=== PATIENT | female | born 1995 | race Caucasian/White ===

== ENCOUNTER → 2024-01-09 09:05 | Outpatient (REF) | payer OTHER, SELFPAY | LOC: MRI 09:05 | PROVIDERS: ATTENDING PHYSICIAN Nurse Practitioner Family; FAMILY PHYSICIAN Physician Assistant Medical | DX: M54.50 Low back pain, unspecified (principal) | CPT/HCPCS: 72148 ==

== ENCOUNTER 2024-02-01 16:51 | Outpatient (RCR) | payer OTHER, BC, SELFPAY | END 2024-02-01 23:59 | disposition home or self-care (01) | LOC: RPT 16:51 | PROVIDERS: ATTENDING PHYSICIAN Nurse Practitioner; FAMILY PHYSICIAN Physician Assistant Medical | DX: M54.51 Vertebrogenic low back pain (principal); M51.27 Other intervertebral disc displacement, lumbosacral region; Z73.6 Limitation of activities due to disability; R26.2 Difficulty in walking, not elsewhere classified; R20.2 Paresthesia of skin; X50.1XXD Overexertion from prolonged static or awkward postures, subsequent encounter; Y93.F9 Activity, other caregiving; Y92.89 Other specified places as the place of occurrence of the external cause; Y99.0 Civilian activity done for income or pay | CPT/HCPCS: 97110; 97140; 97162 ==

== ENCOUNTER → 2024-02-11 11:45 | Outpatient (REF) | payer OTHER, SELFPAY ==
[2024-02-15 08:55] LABS: Aptima Media Type MultiTest Swab; Chlamydia trachomatis by TMA Negative (Negative); Neisseria gonorrhoeae by TMA Negative (Negative); Specimen Source Vaginal
== END ==
LOC: CPAP 11:45
PROVIDERS: ATTENDING PHYSICIAN Obstetrics & Gynecology Gynecology
DX: N93.9 Abnormal uterine and vaginal bleeding, unspecified (principal); N76.0 Acute vaginitis
CPT/HCPCS: 87070; 87077; 87102; 87106; 87147; 87491; 87591

== ENCOUNTER 2024-03-07 17:02 | Outpatient (RCR) | payer OTHER, SELFPAY | END 2024-03-07 23:59 | disposition home or self-care (01) | LOC: RPT 17:02 | PROVIDERS: ATTENDING PHYSICIAN Nurse Practitioner; FAMILY PHYSICIAN Physician Assistant Medical | DX: M54.51 Vertebrogenic low back pain (principal); M51.27 Other intervertebral disc displacement, lumbosacral region; Z73.6 Limitation of activities due to disability; R26.2 Difficulty in walking, not elsewhere classified; R20.2 Paresthesia of skin; X50.1XXD Overexertion from prolonged static or awkward postures, subsequent encounter; Y93.F9 Activity, other caregiving; Y92.89 Other specified places as the place of occurrence of the external cause; Y99.0 Civilian activity done for income or pay | CPT/HCPCS: 97110; 97112; 97140 ==

== ENCOUNTER 2024-04-06 09:47 | Outpatient (RCR) | payer OTHER, SELFPAY | END 2024-04-06 23:59 | disposition home or self-care (01) | LOC: RPT 09:47 | PROVIDERS: ATTENDING PHYSICIAN Nurse Practitioner; FAMILY PHYSICIAN Physician Assistant Medical | DX: M51.27 Other intervertebral disc displacement, lumbosacral region (principal); M54.51 Vertebrogenic low back pain (principal); Z73.6 Limitation of activities due to disability; R26.2 Difficulty in walking, not elsewhere classified; R20.2 Paresthesia of skin; X50.1XXD Overexertion from prolonged static or awkward postures, subsequent encounter; Y93.F9 Activity, other caregiving; Y92.89 Other specified places as the place of occurrence of the external cause; Y99.0 Civilian activity done for income or pay | CPT/HCPCS: 97010; 97110; 97112 ==

== ENCOUNTER 2024-04-24 09:01 | Outpatient (RCR) | payer OTHER, SELFPAY | END 2024-04-24 23:59 | disposition home or self-care (01) | LOC: RPT 09:01 | PROVIDERS: ATTENDING PHYSICIAN Nurse Practitioner; FAMILY PHYSICIAN Physician Assistant Medical | DX: M54.51 Vertebrogenic low back pain (principal); Z73.6 Limitation of activities due to disability; M51.27 Other intervertebral disc displacement, lumbosacral region; R26.2 Difficulty in walking, not elsewhere classified; R20.2 Paresthesia of skin; X50.1XXD Overexertion from prolonged static or awkward postures, subsequent encounter; Y93.F9 Activity, other caregiving; Y92.89 Other specified places as the place of occurrence of the external cause; Y99.0 Civilian activity done for income or pay | CPT/HCPCS: 97010; 97110; 97112 ==

== ENCOUNTER → 2025-04-17 15:21 | Outpatient (REF) | payer BC, SELFPAY ==
[2025-04-17 18:12] LABS: Rubella Positive
[2025-04-17 18:58] LABS: Hepatitis B Surface Antibody Positive
[2025-04-19 13:43] LABS: Mumps Virus IgG Positive; Rubeola (Measles) IgG Positive; Varicella Zoster IgG (VZV) Positive
== END ==
LOC: REG 15:21
PROVIDERS: ATTENDING PHYSICIAN Physician Assistant Medical
DX: Z01.84 Encounter for antibody response examination (principal)
CPT/HCPCS: 36415; 86706; 86735; 86762; 86765; 86787

== ENCOUNTER → 2025-04-18 10:56 | Outpatient (REF) | payer BC, SELFPAY ==
[2025-04-22 00:39] LABS: Quantiferon Mitogen minus NIL >10.00 IU/mL; Quantiferon NIL 0.03 IU/mL; Quantiferon Plus TB1 minus NIL 0.06 IU/mL (<=0.34); Quantiferon Plus TB2 minus NIL 0.15 IU/mL (<=0.34); Quantiferon TB Gold Plus Negative (Negative)
== END ==
LOC: REG 10:56
PROVIDERS: ATTENDING PHYSICIAN Physician Assistant Medical
DX: Z01.84 Encounter for antibody response examination (principal)
CPT/HCPCS: 36415; 86480